=== PATIENT | male | born 1970 | race Caucasian/White ===

== ENCOUNTER 2017-05-30 11:53 | Emergency (ER) | payer SELFPAY ==
[2017-05-30 12:04] VITALS: BP 132/78
[2017-05-30] MEDS ORDERED: Tetan/Diph/Pertus SYR(Tdap)* 0.5 ML SYR(BOOSTRIX) use SYR IM ONE (12:05)
--- NOTE | 2017-05-30 12:20 | UC ---
Laceration HPI - HPI Summary HPI Summary: Last night pt was watching football with a friend and drank 24oz beer (usually does not affect pt this much) and smoked marijuana (which is not common for pt , especially mixed with etoh). After walking down some stairs, pt felt "woozy" for a moment and then passed out forward, witnessed by friend. Was only unconscious for a few seconds, no confusion/amnesia/vomiting/continued dizziness /headache. Denies neck pain or dental pain/trauma. Pt has small linear lac below L eyebrow, unsure of last tetanus shot. - History Of Current Complaint Chief Complaint: UCLaceration Stated Complaint: EYEBROW LACERATION Time Seen by Provider: 05/30/17 12:04 Hx Obtained From: Patient Laceration Location: Face Mechanism Of Injury: Blunt Trauma Onset/Duration: Sudden Onset Severity: Mild - Allergies/Home Medications Allergies/Adverse Reactions: Allergies Allergy/AdvReac Type Severity Reaction Status Date / Time No Known Allergies Allergy Verified 10/14/14 16:20 PMH/Surg Hx/FS Hx/Imm Hx - Surgical History Surgical History: None - Family History Known Family History: Positive: Hypertension - Social History Occupation: Employed Full-time Alcohol Use: Rare Substance Use Type: Marijuana Substance Use Comment - Amount & Last Used: once a month Smoking Status (MU): Former Smoker Type: Cigarettes Amount Used/How Often: <1 PPD Length of Time of Smoking/Using Tobacco: 20 years Have You Smoked in the Last Year: Yes Household Exposure Type: Cigarettes Review of Systems Constitutional: Negative Skin: Other - cut to face Eyes: Negative ENT: Negative Respiratory: Negative Cardiovascular: Negative Gastrointestinal: Negative Genitourinary: Negative Motor: Negative Neurovascular: Negative Musculoskeletal: Negative Neurological: Negative Psychological: Negative Is Patient Immunocompromised?: No All Other Systems Reviewed And Are Negative: Yes Physical Exam Triage Information Reviewed: Yes Appearance: Well-Appearing, No Pain Distress, Well-Nourished Vital Signs: Initial Vital Signs Temp 98.1 F 05/30/17 12:00 Pulse 57 05/30/17 12:00 Resp 18 05/30/17 12:00 BP 132/78 05/30/17 12:00 Pulse Ox 100 05/30/17 12:00 Vital Signs Reviewed: Yes Eye Exam: Normal, Other - PERRL Eyes: Positive: Conjunctiva Clear ENT Exam: Normal ENT: Positive: Normal ENT inspection, Hearing grossly normal, Pharynx normal Dental Exam: Normal Neck exam: Normal Neck: Positive: Supple Respiratory Exam: Normal Respiratory: Positive: Chest non-tender, Lungs clear, Normal breath sounds, No respiratory distress, No accessory muscle use Cardiovascular Exam: Normal Cardiovascular: Positive: RRR, No Murmur Musculoskeletal Exam: Normal Neurological Exam: Normal Neurological: Positive: Alert Psychological Exam: Normal Skin Exam: Other - Below L eyebrow 1.5cm lac Laceration Repair - Laceration Repair 1 Description: Linear Laceration Size After Repair: Length (cm) - 1.5, Width (mm) - 0, Depth (mm) - 0 Modified For Repair: No Cleansing Completed Via Routine Prep: Yes Irrigation With Pressure Irrigation Device: Yes Closure Material: Skin Adhesive Laceration Course/Dx - Course/Dx Course Of Treatment: Pt feels his brief syncope was directly from his intake of alcohol and marijuana; he does not want further testing. Given his benign presentation and lack of liliam factors for other serious pathology, I agree. I encouraged him to go right to the ED at any time if he has full or near syncope in the future. - Differential Dx - Laceration/Wound Provider Diagnoses: L eyebrow laceration. head contusion Discharge - Discharge Plan Condition: Stable Disposition: HOME Patient Education Materials: Skin Adhesive Care (ED) Additional Instructions: You may shower like normal starting today, but I recommend not soaking or scrubbing the area for at least 5 days.
== END 2017-05-30 12:40 | disposition home or self-care (01) ==
LOC: UCEAST 11:53
DX: S01.112A Laceration without foreign body of left eyelid and periocular area, initial encounter (principal); W19.XXXA Unspecified fall, initial encounter; Y92.9 Unspecified place or not applicable; F17.210 Nicotine dependence, cigarettes, uncomplicated; S00.93XA Contusion of unspecified part of head, initial encounter
CPT/HCPCS: 12011; 90471; 90715; 99211; G0463

== ENCOUNTER 2019-11-02 18:49 | Emergency (ER) | payer SELFPAY ==
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
[2019-11-02 23:23] VITALS: BP 170/100
== END 2019-11-02 20:42 | disposition home or self-care (01) ==
LOC: ED 18:49
DX: S06.9X9A Unspecified intracranial injury with loss of consciousness of unspecified duration, initial encounter (principal); S01.81XA Laceration without foreign body of other part of head, initial encounter; S01.21XA Laceration without foreign body of nose, initial encounter; S01.511A Laceration without foreign body of lip, initial encounter; V18.0XXA Pedal cycle driver injured in noncollision transport accident in nontraffic accident, initial encounter; Y93.55 Activity, bike riding; Y92.9 Unspecified place or not applicable; F17.210 Nicotine dependence, cigarettes, uncomplicated
CPT/HCPCS: 12013; 99281; 99282

== ENCOUNTER 2019-11-09 11:54 | Emergency (ER) | payer SELFPAY ==
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
[2019-11-09 13:13] VITALS: BP 168/107
== END 2019-11-09 13:12 | disposition home or self-care (01) ==
LOC: ED 11:54
DX: S01.501D Unspecified open wound of lip, subsequent encounter (principal); R60.0 Localized edema; F17.210 Nicotine dependence, cigarettes, uncomplicated; L08.9 Local infection of the skin and subcutaneous tissue, unspecified; Y93.55 Activity, bike riding
CPT/HCPCS: 99282